=== PATIENT | male | born 1975 | race Two or more races ===

== ENCOUNTER 2020-04-28 23:13 | Emergency (ER) | payer MEDICAID, OTHER ==
[~2020-04-28] VITALS: Ht 172.7 cm; Wt 97.5 kg
--- NOTE | 2020-04-28 23:45 | NUR ---
BIBS FROM HOME TO ER BED 17. AAOX4. NOT IN RESP DISTRESS. AMBULATORY. CAME IN FOR A L ANKLE AND L FOOT PAIN S/P FELL INTO A WHOLE ON THE GROUND WHILE HIKING. NOTED SWELLING ON HIS L ANKLE AND L FOOT, DISCOLORATION ON L FOOT DIGIT 3,4,5. SUPERFICIAL ABBRASSION ON L TEIXEIRA L & R KNEE. ROM INTACT AND SENSATIONS ARE FELT. WAS AT THE BEDSIDE. ORDERS RECEIVED, NOTED AND CARRIED OUT
--- NOTE | 2020-04-28 23:48 | NUR ---
EMT AT BEDSIDE FOR WOUND CLEANING. CLEANSE W/ NS AND PAT DRY.
[2020-04-29] MEDS ORDERED: HYDROCODONE/APAP 5/325MG 1 EACH TABLET ONE (00:57)
[2020-04-29] MEDS ORDERED: HYDROCODONE/APAP 5/325MG 1 EACH TABLET PO ONE (01:00)
--- NOTE | 2020-04-29 01:17 | NUR ---
PT RECEIVED WOUND CARE AND AWA WRAP ON L ANKLE
--- NOTE | 2020-04-29 01:30 | NUR ---
Pt is medically stable for d/c. Patient discharged to home in stable condition. Rx and Written and verbal after care instructions given. Patient verbalizes understanding of instruction.
[2020-04-29 01:40] VITALS: BP 119/79
== END 2020-04-29 01:40 | disposition home or self-care (01) ==
LOC: ER 23:15
DX: S92.512A Displaced fracture of proximal phalanx of left lesser toe(s), initial encounter for closed fracture (principal); S93.492A Sprain of other ligament of left ankle, initial encounter; I10 Essential (primary) hypertension; E11.9 Type 2 diabetes mellitus without complications; W01.0XXA Fall on same level from slipping, tripping and stumbling without subsequent striking against object, initial encounter; Y93.89 Activity, other specified; Y92.89 Other specified places as the place of occurrence of the external cause; Y99.8 Other external cause status
CPT/HCPCS: 73610-TC; 73630-TC